=== PATIENT | female | born 1955 | race Caucasian/White ===

== ENCOUNTER 2023-04-08 12:10 | Emergency (ER) | payer MEDICARE, OTHER ==
[~2023-04-08] VITALS: Ht 167.6 cm; Wt 61.2 kg
[2023-04-08] MEDS ORDERED: KETOROLAC TROMETHAMINE INJ 60 MG/2 ML VIAL IM ONE (12:30)
[2023-04-08] MEDS ORDERED: CYCLOBENZAPRINE 10 MG TABLET PO ONE (12:30)
[2023-04-08] MEDS ORDERED: DIAZEPAM 5 MG TABLET PO ONE (12:30)
--- NOTE | 2023-04-08 12:33 | NUR ---
DIONICIOA [id number]" Right Lower Back Pain. Denies injury/trauma"
[2023-04-08] MEDS ORDERED: CYCLOBENZAPRINE 10 MG TABLET ONE (12:40)
[2023-04-08] MEDS ORDERED: DIAZEPAM 5 MG TABLET ONE (12:40)
[2023-04-08] MEDS ORDERED: KETOROLAC TROMETHAMINE INJ 30 MG/ML VIAL ONE (12:40)
--- NOTE | 2023-04-08 12:59 | NUR ---
PT PLACED ON BED,CONNECT TO MONITOR,OFFERED BLANKET.
[2023-04-08] MEDS ORDERED: CYCL5TAB PO (13:52)
[2023-04-08 14:33] VITALS: BP 149/72
== END 2023-04-08 14:34 | disposition home or self-care (01) ==
LOC: ER 12:42
DX: M54.50 Low back pain, unspecified (principal); G89.29 Other chronic pain; Z88.8 Allergy status to other drugs, medicaments and biological substances; Z60.2 Problems related to living alone
CPT/HCPCS: 99283; 96372; J1885